=== PATIENT | female | born 1975 | race Caucasian/White ===

== ENCOUNTER 2024-02-16 09:31 | Day surgery (SDC) | payer OTHER, SELFPAY ==
[2024-02-16] VITALS (12 sets, daily range): BP systolic 105–128; BP diastolic 60–89; PULSE 46–70; RESP 16; TEMP 36.3–36.6; O2SAT 93–100; BMI 36.8
--- OUTSIDE RECORDS SUMMARY | 2024-02-16 09:40 | XMS_ITS | Clinical Summary ---
Author Organization [facility] Address [place], [place] [address] Care Team Providers Care Certification Engineer Name Role Phone Monica Meadows DO Primary Care Provider [phone] Allergies No known active allergies Medications Medication Sig Dispensed Refills Start Date End Date Status doxycycline 100 mg tabletIndications:Ro sacea Take 1 Tablet (100 mg) by mouth two times daily. 60 Tablet 5 06/12/2023 Active propranoloL (INDERAL) 80 mg tabletIndications:He adache syndrome,Migraine with aura and without status migrainosus, not intractable Take 1 Tablet (80 mg) by mouth two times daily. 180 Tablet 3 08/14/2023 Active venlafaxine (EFFEXOR XR) 150 mg Extended-Release capsuleIndications:S evere episode of recurrent major depressive disorder, without psychotic features (HC) Take 1 Capsule (150 mg) by mouth once daily with evening meal. 90 Capsule 3 08/14/2023 Active rizatriptan (MAXALT) 5 mg tabletIndications:Mi graine with aura and without status migrainosus, not intractable Take 1 Tablet (5 mg) by mouth every 2 hours if needed for Migraine. Give at minimum 2hrs apart. Max Dose: 30mg per 24hrs. 12 Tablet 12/31/2023 Active triamcinolone (ARISTOCORT; KENALOG) 0.1 % creamIndications:Pru ritus Apply topically to affected area(s) 2 times daily if needed (Rash). 80 g 01/04/2024 Active Active Problems Problem Noted Date Diagnosed Date Migraine with aura and witho ut status migrainosus, not intractable 08/14/2023 Severe episode of recurrent major depressive disorder, without psychotic features 12/02/2022 Encounters Date Type Department Care Team Description 02/04/2024 3:45 PM CDT Preop Visit [facility] [address] [place] [address] Tra Meadows DO Preoperative Exam (02/16/2024 - Lap Cholecystomy - Dr. Bejarano - [facility] ) 02/04/2024 Travel 01/29/2024 Telephone [facility] [address] [place] [address] Moraima Bejarano MD Surgery Scheduled (Patient is calling because she needs to schedule her surgery and nobody has called her.) 01/27/[address] [address] Moraima Bejarano MD 01/25/2024 Telephone [facility] [address] [place] [address] Moraima Bejarano MD Appointment Request (surgery schedule ) 01/20/2024 3:45 PM CDT Office Visit [address] [address] Moraima Bejarano MD Consult (Gallstones referred by Dr. Filippo Meadows) 01/20/2024 Travel 01/11/2024 3:15 PM CDT Ancillary Procedure [address] [address] 01/11/2024 Travel 01/04/2024 8:55 AM CDT Office Visit [address] [address] Monica Meadows DO Referral (Discuss gall bladder removal - was told to have this out 20 years ago) 01/04/2024 Travel 12/31/[address] [address] Monica Meadows DO Refill Request (rizatriptan (MAXALT) 5 mg tablet) from Last 3 Months Immunizations Name Administration Dates Next Due COVID-19 vaccine (Moderna 100mcg/0.5mL) VALE HERNANDEZ 05/16/2021 COVID-19 vaccine (Pf[employer] 30mcg/0.3mL) P VALE Leavitt 08/23/2020,08/02/2020 Family History Medical History Relation Name Comments Diabetes type II Father Diabetes type II Paternal Grandfather Diabetes type II Paternal Grandmother Diabetes type II Sister Relation Name Status Comments Father Paternal Grandfather Paternal Grandmother Sister Social History Tobacco Use Types Packs/Day Years Used Date Smoking Tobacco: Never Smokeless Tobacco: Never Tobacco Cessation:Counseling Given: Yes Alcohol Use Standard Drinks/Week Comments Yes 0 (1 standard drink = 0.6 oz pur e alcohol) 1-2 drinks a week PHQ-2 Answer Date Recorded PHQ-2 TOTAL SCORE 0 01/04/2024 Social Connections Answer Date Recorded Frequency of Communication with Friends and Fami ly 0 11/02/2023 Financial Resource Strain Answer Date R ecorded Difficulty of Paying Living Expenses 3 11/02/2023 Difficulty of Paying Living Expenses Not on file 11/02/2023 Food Insecurity Answer Date Recorded Worried About Running Out of Food in the Last Ye ar 1 11/02/2023 Transportation Needs Answer Date Record ed Lack of Transportation (Medical) 1 11/02/2023 Housing Stability Answer Date Recorded Unable to Pay for Housing in the Last Year 1 11/02/2023 Sex and Gender Information Value Date Recorded Sex Assigned at Not on file Gender Identity Not on file Sexual Orientation Not on file Obstetrics History Last Filed Vital Signs Vital Sign Reading Time Taken Comments Blood Pressure 113/75 02/04/2024 3:46 PM CDT Pulse 64 02/04/2024 3:46 PM CDT Temperature 36.9 ??C (98.4 ??F) 09/30/2021 1 1:17 AM CDT Respiratory Rate - - Oxygen Saturation 98% 02/04/2024 3:46 PM CDT Inhaled Oxygen Concentration - - Weight 103.4 kg (227 lb 14.4 oz) 02/04/2024 3:46 PM CDT Height 171.5 cm (5' 7.5) 08/19/2021 9:34 AM MACHINIST LINOTYPE Body Mass Index 35.17 08/19/2021 9:34 AM MACHINIST LINOTYPE Plan of Treatment Upcoming Encounters Date Type Department Care Team (Late st Contact Info) Description 02/16/2024 10:00 AM CDT Office Visit [facility] [address] [place] [address] Moraima Bejarano MD [address] [place] [address] Arrived Health Maintenance Due Date Last Done Comments Tdap 1986 HIV for age 15-65 1990 BMI (ht and wt on same day) for age 18+ 1993 Hepatitis C screening for age 18-79 1993 Tetanus booster 1995 Mammogram for age 45-75 2020 COVID-19 vaccine series (2022- season) 2023 05/16/2021, 08/23/2020, 08/02/2020 Influenza for age 9-49 03/13/2024 Depression screening for age 12+ 01/03/2025 01/04/2024, 07/10/2023, 07/10/2023, Additional history exists Fecal testing sDNA-FIT (Cologuard) for age 45-75 09/14/2026 09/15/2023 Lipids for age 45-75 04/08/2027 04/08/2022 Pap test for age 21-65 Discontinued Pneumococcal series for age 6-64 Aged Out No longer eligible based on patient's age to complete this topic Procedures Procedure Name Priority Date/Time Associated Diagnosis Comments TISSUE TRANSGLUTAMINASE IGA Routine 01/20/2024 4:20 PM CDT Abdominal pain, RUQ (right upper quadrant) CELIAC CASCADE PANEL Routine 01/20/2024 4:20 PM CDT Abdominal pain, RUQ (right upper quadrant) US ABDOMEN LIMITED RUQ Routine 3:33 PM CDT Abdominal pain, RUQ (right upper quadrant) HEPATIC FUNCTION PANEL Routine 9:56 AM CDT Abdominal pain, RUQ (right upper quadrant) SDNA-FIT EXTERNAL (COLOGUARD) Routine 09/15/2023 5:53 PM MACHINIST LINOTYPE Screening for colon cancer LIPID PANEL W REFLEX MEASURED LDL Routine 04/08/2022 4:31 PM CDT Lipid screening from Last 3 Months or Most Recently Relevant to Health Maintenance Results * CELIAC CASCADE PANEL (01/20/2024 4:20 PM CDT) IGA 238.46 84.50 - 499.00 mg/dL 01/22/2024 8:42 AM CDT [facility] Blood BLOOD SPECIMEN / Unknown Butterfly / Unknown 01/20/2024 4:20 PM CDT 01/20/2024 4:20 PM CDT Narrative [facility] - 01/22/2024 8:42 AM CDT Reflexed to Tissue Transglutaminase IgA Moraima Bejarano MD SEND OUTS [facility] [address] * TISSUE TRANSGLUTAMINASE IGA (01/20/2024 4:20 PM CDT) TISSUE TRANSGLUTAMINASE IGA <1.2 <4.0 U/ml 01/22/2024 12:18 PM CDT [facility] Comment:Celiac disease unlik ladi unless IgA deficient. Recommend IgA levels if not already performed. Blood BLOOD SPECIMEN / Unknown Butterfly / Unknown 01/20/2024 4:20 PM CDT 01/20/2024 4:20 PM CDT Narrative [facility] - 01/22/2024 12:18 PM CDT Negative ?<4.0 Weak Positive ?? 4-10 Positive ?>10.0 This test should not be solely relied upon to establish a diagnosis of celiac disease. Affected individuals who have been on a gluten-free diet prior to testing may have a negative result. These results were obtained using the Overinteractive Mediaa Lite R h-tTG IgA MICHELLE assay. ??Values obtained from other manufacturers' assay methods may not be used interchangeably. Moraima Bejarano MD SEND OUTS [facility] [address] [place] [address], [place] * US ABDOMEN LIMITED RUQ (01/11/2024 3:33 PM CDT) Anatomical Region Laterality Modality Abdomen, LIVER Ultrasound 01/12/2024 7:01 AM CDT Impressions 01/12/2024 7:01 AM CDT Multiple shadowing stones are present within the gallbladder lumen consistent with cholelithiasis. No biliary obstruction. Fatty liver with focal sparing adjacent to the gallbladder. Dictated by Lopez Asif MD @ 01/12/2024 7:01:54 AM (Electronically Signed) Narrative 01/12/2024 7:01 AM CDT For Patients: ??As a result of the Cures Act, medical imaging exams and procedure reports are released immediately into your electronic medical record. ??You may view this report before your referring provider. ??If you have questions, please contact your health care provider. INDICATION: Abdominal pain COMPARISON: none TECHNIQUE: Real time means scale imaging and color Doppler analysis was performed of the right upper quadrant. Exam somewhat limited by overlying bowel gas. FINDINGS: The liver echotexture is diffusely echogenic. There is an area of decreased echogenicity adjacent to the gallbladder which measures 2.8 x 2.8 x 1.4 cm. The IVC is not well visualized. The aorta is unremarkable. There is no evidence of ascites. The gallbladder is partially distended and there are multiple hyperechoic shadowing stones within the gallbladder lumen. The gallbladder wall measures 1 mm in thickness. ??The common bile duct is of normal size and measures 6 mm in diameter at the level of the karissa hepatis. ??The pancreas is not well visualized. There is no evidence of a stone or hydronephrosis within the right kidney. ??The right kidney measures 9.6 cm in length. ?? Procedure Note Lopez Asif MD - 01/12/2024 For Patients: As a result of the Cures Act, medical imagingexams and procedure reports are released immediately into your electronicmedical record. You may view this report before your referring provider.If you have questions, please contact your health care provider. INDICATION: Abdominal pain COMPARISON: none TECHNIQUE: Real time means scale imaging and color Doppler analysis was performed ofthe right upper quadrant. Exam somewhat limited by overlying bowel gas. FINDINGS: The liver echotexture is diffusely echogenic. There is an area ofdecreased echogenicity adjacent to the gallbladder which measures 2.8 x2.8 x 1.4 cm. The IVC is not well visualized. The aorta is unremarkable.There is no evidence of ascites. The gallbladder is partially distendedand there are multiple hyperechoic shadowing stones within the gallbladderlumen. The gallbladder wall measures 1 mm in thickness. The common bileduct is of normal size and measures 6 mm in diameter at the level of theporta hepatis. The pancreas is not well visualized. There is no evidenceof a stone or hydronephrosis within the right kidney. The right kidneymeasures 9.6 cm in length. IMPRESSION: Multiple shadowing stones are present within the gallbladder lumenconsistent with cholelithiasis. No biliary obstruction. Fatty liver with focal sparing adjacent to the gallbladder. Dictated by Lopez Asif MD @ 01/12/2024 7:01:54 AM (Electronically Signed) Monica Mary Helder DO US * (ABNORMAL) LIVER PANEL (HEPATIC FUNCTION PANEL) (01/04/2024 9:56 AM CDT) ALBUMIN 4.5 4.0 - 4.9 g/dL 01/04/2024 6:54 PM CDT [facility] PROTEIN,TOTAL 7.2 6.0 - 8.0 g/dL 01/04/2024 6:54 PM CDT [facility] BILIRUBIN,TOTAL 0.4 0.0 - 1.2 mg/dL 01/04/2024 6:54 PM CDT [facility] BILIRUBIN,DIRECT <0.2 0.0 - 0.3 mg/dL 01/04/2024 6:54 PM CDT [facility] BILIRUBIN,INDIRE CT 01/04/2024 6:54 PM CDT [facility] Comment:Unable to calculate, Direct Bili <0.2 ALK PHOSPHATASE 87 35 - 104 IU/L 01/04/2024 6:54 PM CDT [facility] ALT (SGPT) 53(H) 10 - 35 IU/L 01/04/2024 6:54 PM CDT [facility] AST (SGOT) 34 10 - 35 IU/L 01/04/2024 6:54 PM CDT [facility] Blood BLOOD SPECIMEN / Unknown Butterfly / Unknown 01/04/2024 9:56 AM CDT 01/04/2024 9:56 AM CDT Monica Meadows DO CHEMISTRY [facility] [address] [place] [address], * SDNA-FIT EXTERNAL (COLOGUARD) (09/15/2023 5:53 PM MACHINIST LINOTYPE) NONINV COLON CA DNA+OCC BLD SCRN STL-IMP Negative Negative 09/23/2023 12:37 AM CDT [facility] (CLIA #:[id number]) Comment: NEGATIVE TEST RESULT. A negative Cologuard result indicates a low likelihood that a colorectal cancer (CRC) or advanced adenoma (adenomatous polyps with more advanced pre-malignant features) ??is present. The chance that a person with a negative Cologuard test has a colorectal cancer is less than 1 in 1500 (negative predictive value >99.9%) or has an ??advanced adenoma is less than ??5.3% (negative predictive value 94.7%). These data are based on a prospective cross-sectional study of 10,000 individuals at average risk for colorectal cancer who were screened with both Cologuard and colonoscopy. (Larry Warren al, N Engl J Med 2014;370(14):1286- 1297) The normal value (reference range) for this assay is negative. COLOGUARD RE-SCREENING RECOMMENDATION: Periodic colorectal cancer screening is an important part of preventive healthcare for asymptomatic individuals at average risk for colorectal cancer. ??Following a negative Cologuard result, the [place] [employer] and U.S. Multi-Society Task Force screening guidelines recommend a Cologuard re-screening interval of 3 years. References: [place] [employer] Guideline for Colorectal Cancer Screening: https://www.cancer.org/cancer/ggwrk-xykgay-gbjrst/rtncgdcto-riqdncrje-cmbgkuq/ac s-rec ommendations.html.; Alex DK, Leigha CR, Phil GarciaK, Colorectal Cancer Screening: Recommendations for Physicians and Patients from the U.S. Multi-Society Task Force on Colorectal Cancer Screening , Am J Gastroenterology 2017; 112:2965-9324. TEST DESCRIPTION: Composite algorithmic analysis of stool DNA-biomarkers with hemoglobin immunoassay. ?? Quantitative values of individual biomarkers are not reportable and are not associated with individual biomarker result reference ranges. Cologuard is intended for colorectal cancer screening of adults of either sex, 45 years or older, who are at average-risk for colorectal cancer (CRC). Cologuard has been approved for use by the U.S. FDA. The performance of Cologuard was established in a cross sectional study of average-risk adults aged 50-84. Cologuard performance in patients ages 45 to 49 years was estimated by sub-group analysis of near-age groups. Colonoscopies performed for a positive result may find as the most clinically significant lesion: colorectal cancer [4.0%], advanced adenoma (including sessile serrated polyps greater than or equal to 1cm diameter) [20%] or non- advanced adenoma [31%]; or no colorectal neoplasia [45%]. These estimates are derived from a prospective cross-sectional screening study of 10,000 individuals at average risk for colorectal cancer who were screened with both Cologuard and colonoscopy. (Larry Warren al, N Engl J Med 2014;370(14):7081-2137.) Cologuard may produce a false negative or false positive result (no colorectal cancer or precancerous polyp present at colonoscopy follow up). A negative Cologuard test result does not guarantee the absence of CRC or advanced adenoma (pre-cancer). The current Cologuard screening interval is every 3 years. ([place] [employer] and U.S. Multi-Society Task Force). Cologuard performance data in a 10,000 patient pivotal study using colonoscopy as the reference method can be accessed at the following location: www.[employer]/results. Additional description of the Cologuard test process, warnings and precautions can be found at www.cologuard.com. Stool specimen (specimen) (Rectum) 09/15/2023 5:53 PM MACHINIST LINOTYPE 09/17/2023 9:36 AM MACHINIST LINOTYPE Monicachris Meadows DO URINE [facility] (CLIA #:[id number]) [place] [address], * (ABNORMAL) LIPID PANEL W REFLEX MEASURED LDL (04/08/2022 4:31 PM CDT) CHOLESTEROL,TOTAL 182 100 - 199 mg/dL 04/09/2022 6:16 PM CDT [facility] TRIGLYCERIDES 298(H) <150 mg/dL 04/09/2022 6:16 PM CDT [facility] HDL CHOLESTEROL 41 >40 mg/dL 6:16 PM CDT [facility] NON-HDL CHOLESTEROL 141 <145 mg/dl 04/09/2022 6:16 PM CDT [facility] CHOL/HDL RATIO 4.44 <4.50 04/09/2022 6:16 PM CDT [facility] LDL CHOLESTEROL 81 <=130 mg/dL 04/09/2022 6:16 PM CDT [facility] VLDL CHOLESTEROL 60(H) <=30 mg/dL 04/09/2022 6:16 PM CDT [facility] PROVIDER ORDERED STATUS RANDOM 04/09/2022 6:16 PM CDT [facility] Blood BLOOD SPECIMEN / Unknown Butterfly / Unknown 04/08/2022 4:31 PM CDT 04/08/2022 4:32 PM CDT Tra Meadows DO CHEMISTRY [facility] [address] [place] [address], from Last 3 Months or Most Recently Relevant to Health Maintenance Care Teams Certification Engineer Relationship Specialty Start Date End Date Monica Meadows DO [address] [place] [address] PCP - General Family Practice 10/27/23
[2024-02-16] MEDS: LACTATED RINGERS 1000 ML 1,000 ML 100 ML IV (09:45)
[2024-02-16] MEDS: SODIUM CHLORIDE 0.9 % (FLUSH) 10 ML SYRINGE IVF (09:59)
[2024-02-16] MEDS: CEFAZOLIN 2 GM INJ IVP (12:20)
[2024-02-16] MEDS: BUPIVACAINE 0.5% 30 ML INJECTION (12:45)
--- NOTE | 2024-02-16 14:07 | P.GSOP_ITS ---
Operative Note Date of procedure: 02/16/24 Pre-op diagnosis: Biliary colic Post-op diagnosis: Same Type of Procedure: Laparoscopic cholecystectomy Indications: Patient is a 48-year-old female who presented to clinic with clinical workup and symptoms consistent with biliary colic. Please see consultation note for full discussion. Risks and benefits of operative intervention were discussed at length with the patient. Risks included but was not limited to: Bleeding, infection, risk of damage to surrounding structures, possible need for additional procedures, possible need to convert to an open operation and postoperative complications such as pneumonia, pulmonary emboli or HI. All questions and concerns were addressed with the patient agreeing to proceed. Procedure Description: After discussing the risks and benefits of the procedure, the patient signed informed consent.? The operative site was marked and the patient was brought to the operating room and placed on the operating table in supine position.? Care was taken to pad the patient's pressure points.?? The patient was then intubated by anesthesia.?? The operative site was then prepped and draped in the usual sterile fashion.? A time-out was then performed. Entrance to the abdomen was gained via a 5 mm Visiport in the left upper quadrant. The abdomen was insufflated and briefly surveyed for signs of injury. There was none. Evidence of adhesions to the anterior abdominal wall infraumbilical. A loop of small bowel was involved in the adhesions, with no evidence of obstruction or injury. An 11 mm port was placed supraumbilical along the previous incision as well as 2 working ports along the right costal ma rgin. Patient was then placed in reverse Trendelenburg position with the right side up. The gallbladder fundus was grasped and retracted cephalad. The infundibulum was grasped. A combination of hook cautery and blunt dissection was used to carefully dissect out the cystic duct and artery until they could clearly be seen entering the gallbladder without any intervening structures. During retraction a small tear in the body of the gallbladder was made with a moderate amount of bile spillage. There was no spillage of stones. The gallbladder was dissected off the cystic plate to achieve the critical view. Once this was achieved the cystic duct and artery were each clipped with 2 clips proximally and 1 clip distally and transected with the scissors. The gallbladder was then taken off of the liver bed and removed from the abdomen using an Endo- Catch bag. The gallbladder bed was surveyed for hemostasis, which was excellent. A small amount of bile which had spilled was suctioned from the abdomen. The supraumbilical port was closed with an 0 Vicryl via the [place]- [place]. the ports were then removed under direct vision. The skin was closed with absorbable subcuticular suture. Instrument sponge and needle counts were correct at the end of the case. The patient was then woken and transferred to the PACU in stable condition. Sterile dressings were then applied. ? The patient was then woken and transported to the recovery area in stable condition. ? The patient tolerated the procedure well. Findings: Cholelithiasis. Anesthesia: GETA Surgeon: Moraima Bejarano MD Estimated blood loss (mL): 5 Specimen: Gallbladder Condition: stable Disposition: PACU
[2024-02-16] MEDS: HYDROCODONE-ACETAMIN 5-325 MG 1 TAB PO (15:50)
--- NOTE | 2024-02-16 16:14 | W.ANESCHARGE ---
Anesthesia Charges Start Date/Time Anesthesia Start Date: 02/16/24 Anesthesia Start Time: 12:05 Stop Date/Time Anesthesia Stop Date: 02/16/24 Anesthesia Stop Time: 14:15
== END 2024-02-16 15:54 | disposition home or self-care (01) ==
PROVIDERS: PCP Family Medicine; Visit Provider Surgery
PROC: 0FT44ZZ Resection of Gallbladder, Percutaneous Endoscopic Approach (ICD-10-PCS; CPT 47562; principal; 2024-02-16 11:15)
DX: K80.10 Calculus of gallbladder with chronic cholecystitis without obstruction (principal)
CPT/HCPCS: 47562; 00790; 88304; A9270; J0330; J0665; J0690; J1100; J1170; J2250; J2405; J2704; J2710; J3010; J7120